=== PATIENT | male | born 1980 | race Caucasian/White ===

== ENCOUNTER 2016-09-19 17:36 | Emergency (ER) | payer OTHER ==
[~2016-09-19 17:36] MED LIST: AUGMENTIN 875-11 TAB PO; CATAFLAM50 MG PO; FISH OIL 1,0001 CA PO; MOTRIN600 MG PO; MULTIVITAMIN1 TAB PO; NEXIUM40 MG PO; NORCO 10/325 TA1 TAB PO; NORCO 5/325 TAB1 TAB PO; PRILOSEC OTC20 MG PO; PRILOSEC PO; ZANTAC150 MG PO
== END 2016-09-19 18:52 | disposition left against medical advice (07) ==
LOC: EDMED 17:36
DX: R42 Dizziness and giddiness (principal); Z53.21 Procedure and treatment not carried out due to patient leaving prior to being seen by health care provider